=== PATIENT | male | born 1965 | race Caucasian/White ===

== ENCOUNTER 2020-02-09 10:23 | Outpatient (REF) | payer BC, SELFPAY ==
[2020-02-09 13:12] LABS: Basophils Percent Auto 0.3 % (0-2); Eosinophils Absolute Auto 0.2 X10*3/uL (0.0-0.4); Eosinophils Percent Auto 2.9 % (0-4); Hematocrit 42.6 % (42-52); Hemoglobin 14.2 g/dl (14.0-18.0); Imm Gran Abs Auto 0.08 X10*3/uL (0.00-0.03); Imm Gran Pct Auto 1.1 % (0.0-0.4); Lymphocytes Absolute Auto 1.5 X10*3/uL (1.2-4.9); Mean Corpuscular HGB Conc 33.3 g/dl (31.0-36.0); Mean Corpuscular Hemoglobin 30.4 pg (27.0-33.0); Mean Corpuscular Volume 91.2 fL (80-98); Mean Platelet Volume 13.5 fL (9.4-12.4); Monocytes Absolute Auto 0.4 X10*3/uL (0.1-1.2); Monocytes Percent Auto 5.8 % (2-11); Neutrophils Percent Auto 68.9 % (45-73); Platelet Count 205 X10*3/uL (160-400); Red Blood Count 4.67 X10*6/uL (4.60-5.80); Red Cell Distribution Width 12.8 % (11.0-16.0); White Blood Count 7.2 X10*3/uL (4.8-10.8)
[2020-02-09 13:40] LABS: Alanine Aminotransferase 30 U/L (0-40); Albumin Level 4.4 g/dL (3.5-5.0); Alkaline Phosphatase 77 U/L (39-117); Anion Gap 14 (12-20); Aspartate Amino Transferase 19 U/L (5-37); Bilirubin Total 0.4 mg/dL (0.0-1.0); Blood Urea Nitrogen 12 mg/dL (9-16); Carbon Dioxide 25 mmol/L (22-29); Chloride 103 mmol/L (96-108); Cholesterol 158 mg/dL; Estimated Glomerular Filt Rate > 60; Glucose Fasting 84 mg/dL (60-99); HDL Cholesterol 47 mg/dL; LDL Cholesterol Calculated 92 mg/dl; Potassium 3.8 mmol/l (3.3-5.1); Sodium 138 mmol/L (135-145); Total Protein 6.9 g/dL (6.5-8.0); Triglycerides 95 mg/dL
[2020-02-09 14:01] LABS: Prostate Specific Antigen Scr 0.63 ng/mL (<0.05-4.0); Thyroid Stimulating Hormone 1.19 uIU/mL (0.32-4.0)
[2020-02-09 14:20] LABS: Creatinine Urine 144.85 mg/dL; Microalbum/Creatinine Ratio Ur 5.5 ug/mg cr
== END 2020-02-09 10:24 | disposition home or self-care (01) ==
LOC: HO.10HDL 10:23
PROVIDERS: PCP Physician Assistant; Visit Provider Physician Assistant
DX: I10 Essential (primary) hypertension (principal); E78.5 Hyperlipidemia, unspecified; E66.01 Morbid (severe) obesity due to excess calories; Z12.5 Encounter for screening for malignant neoplasm of prostate
CPT/HCPCS: 36415; 80053; 80061; 82043; 84153; 84443; 85025

== ENCOUNTER 2020-09-03 11:51 | Outpatient (REF) | payer BC, SELFPAY ==
[2020-09-03 13:33] LABS: Hematocrit 42.5 % (42-52); Hemoglobin 14.4 g/dl (14.0-18.0); Mean Corpuscular HGB Conc 33.9 g/dl (31.0-36.0); Mean Corpuscular Hemoglobin 30.6 pg (27.0-33.0); Mean Corpuscular Volume 90.4 fL (80-98); Mean Platelet Volume 12.3 fL (9.4-12.4); Platelet Count 251 X10*3/uL (160-400); Red Cell Distribution Width 13.2 % (11.0-16.0); White Blood Count 8.5 X10*3/uL (4.8-10.8)
[2020-09-03 13:45] LABS: Alanine Aminotransferase 26 U/L (0-40); Albumin Level 4.5 g/dL (3.5-5.0); Alkaline Phosphatase 83 U/L (39-117); Anion Gap 13 (12-20); Aspartate Amino Transferase 19 U/L (5-37); Bilirubin Total 0.7 mg/dL (0.0-1.0); Blood Urea Nitrogen 14 mg/dL (9-16); Calcium 9.5 mg/dL (8.4-10.2); Carbon Dioxide 27 mmol/L (22-29); Chloride 102 mmol/L (96-108); Cholesterol 168 mg/dL; Estimated Glomerular Filt Rate > 60; Glucose Fasting 95 mg/dL (60-99); HDL Cholesterol 41 mg/dL; LDL Cholesterol Calculated 94 mg/dl; Potassium 3.7 mmol/L (3.3-5.1); Sodium 138 mmol/L (135-145); Total Protein 7.3 g/dL (6.5-8.0); Triglycerides 167 mg/dL
== END 2020-09-03 11:52 | disposition home or self-care (01) ==
LOC: HO.10HDL 11:51
PROVIDERS: Visit Provider Physician Assistant
DX: I10 Essential (primary) hypertension (principal)
CPT/HCPCS: 36415; 80053; 80061; 85027

== ENCOUNTER 2021-04-27 10:42 | Outpatient (REF) | payer BC, SELFPAY ==
[2021-04-27 11:22] LABS: Hematocrit 44.6 % (42.0-52.0); Hemoglobin 15.4 g/dl (14.0-18.0); Mean Corpuscular HGB Conc 34.5 g/dl (31.0-36.0); Mean Corpuscular Hemoglobin 30.9 pg (27.0-33.0); Mean Corpuscular Volume 89.4 fL (80.0-98.0); Platelet Count 259 X10*3/uL (160-400); Red Blood Count 4.99 X10*6/uL (4.60-5.80); Red Cell Distribution Width 13.2 % (11.0-16.0); White Blood Count 7.2 X10*3/uL (4.8-10.8)
[2021-04-27 11:32] LABS: Estimated Average Glucose 108 mg/dL; Hemoglobin A1c % 5.4 %
[2021-04-27 11:43] LABS: Alanine Aminotransferase 27 U/L (0-40); Albumin Level 4.5 g/dL (3.5-5.0); Alkaline Phosphatase 85 U/L (39-117); Anion Gap 16 (12-20); Aspartate Amino Transferase 19 U/L (5-37); Bilirubin Total 0.8 mg/dL (0.0-1.0); Blood Urea Nitrogen 12 mg/dL (9-16); Calcium 9.8 mg/dL (8.4-10.2); Carbon Dioxide 25 mmol/L (22-29); Chloride 102 mmol/L (96-108); Cholesterol 195 mg/dL; Estimated Glomerular Filt Rate > 60; Glucose Fasting 97 mg/dL (60-99); HDL Cholesterol 40 mg/dL; LDL Cholesterol Calculated 106 mg/dl; Potassium 4.1 mmol/L (3.3-5.1); Sodium 139 mmol/L (135-145); Total Protein 7.5 g/dL (6.5-8.0); Triglycerides 245 mg/dL
[2021-04-27 11:45] LABS: Microalbum/Creatinine Ratio Ur 5.6 ug/mg cr
== END 2021-04-27 10:43 | disposition home or self-care (01) ==
LOC: HO.HMGCLDS 10:42
PROVIDERS: PCP Physician Assistant; Visit Provider Physician Assistant
DX: Z12.5 Encounter for screening for malignant neoplasm of prostate (principal); I10 Essential (primary) hypertension; E78.5 Hyperlipidemia, unspecified; E66.01 Morbid (severe) obesity due to excess calories; Z68.39 Body mass index [BMI] 39.0-39.9, adult
CPT/HCPCS: 36415; 80053; 80061; 82043; 83036; 84153; 85027

== ENCOUNTER 2021-10-29 12:15 | Outpatient (REF) | payer BC, SELFPAY ==
[2021-10-29 13:44] LABS: Hematocrit 43.9 % (42.0-52.0); Hemoglobin 15.1 g/dl (14.0-18.0); Mean Corpuscular HGB Conc 34.4 g/dl (31.0-36.0); Mean Corpuscular Hemoglobin 30.4 pg (27.0-33.0); Mean Corpuscular Volume 88.5 fL (80.0-98.0); Platelet Count 250 X10*3/uL (160-400); Red Blood Count 4.96 X10*6/uL (4.60-5.80); Red Cell Distribution Width 13.1 % (11.0-16.0); White Blood Count 8.1 X10*3/uL (4.8-10.8)
[2021-10-29 14:29] LABS: B Type Natriuretic Peptide < 10 pg/mL (<100)
[2021-10-29 14:33] LABS: Alanine Aminotransferase 28 U/L (0-40); Albumin Level 4.7 g/dL (3.5-5.0); Alkaline Phosphatase 95 U/L (39-117); Anion Gap 18 (12-20); Aspartate Amino Transferase 21 U/L (5-37); Bilirubin Total 0.8 mg/dL (0.0-1.0); Blood Urea Nitrogen 16 mg/dL (9-16); Calcium 9.3 mg/dL (8.4-10.2); Carbon Dioxide 26 mmol/L (22-29); Chloride 98 mmol/L (96-108); Cholesterol 184 mg/dL; Estimated Glomerular Filt Rate > 60; Glucose Fasting 94 mg/dL (60-99); HDL Cholesterol 40 mg/dL; LDL Cholesterol Calculated 114 mg/dl; Potassium 3.9 mmol/L (3.3-5.1); Sodium 138 mmol/L (135-145); Total Protein 7.5 g/dL (6.5-8.0); Triglycerides 153 mg/dL
[2021-10-29 14:45] LABS: TSH reflex Free T4 1.37 uIU/mL (0.32-4.0)
== END 2021-10-29 12:16 | disposition home or self-care (01) ==
LOC: HO.10HDL 12:15
PROVIDERS: Visit Provider Physician Assistant
DX: R60.0 Localized edema (principal); I10 Essential (primary) hypertension
CPT/HCPCS: 36415; 80053; 80061; 83880; 84443; 85027

== ENCOUNTER 2022-06-03 10:56 | Outpatient (REF) | payer BC, SELFPAY ==
[2022-06-03 13:31] LABS: Hematocrit 43.7 % (42.0-52.0); Hemoglobin 14.6 g/dl (14.0-18.0); Mean Corpuscular HGB Conc 33.4 g/dl (31.0-36.0); Mean Corpuscular Volume 89.9 fL (80.0-98.0); Mean Platelet Volume 12.7 fL (9.4-12.4); Platelet Count 259 X10*3/uL (160-400); Red Blood Count 4.86 X10*6/uL (4.60-5.80); Red Cell Distribution Width 13.2 % (11.0-16.0); White Blood Count 7.2 X10*3/uL (4.8-10.8)
[2022-06-03 14:12] LABS: Alanine Aminotransferase 25 U/L (0-40); Albumin Level 4.5 g/dL (3.5-5.0); Alkaline Phosphatase 85 U/L (39-117); Anion Gap 14 (12-20); Aspartate Amino Transferase 20 U/L (5-37); Blood Urea Nitrogen 14 mg/dL (9-16); Calcium 9.6 mg/dL (8.4-10.2); Carbon Dioxide 27 mmol/L (22-29); Chloride 103 mmol/L (96-108); Cholesterol 183 mg/dL; Estimated Glomerular Filt Rate > 60; Glucose Fasting 89 mg/dL (60-99); HDL Cholesterol 39 mg/dL; LDL Cholesterol Calculated 104 mg/dl; Sodium 140 mmol/L (135-145); Total Protein 7.4 g/dL (6.5-8.0); Triglycerides 202 mg/dL
[2022-06-03 14:21] LABS: Creatinine Urine 193.76 mg/dL; Microalbum/Creatinine Ratio Ur 8.7 ug/mg cr
[2022-06-03 14:28] LABS: Prostate Specific Antigen Scr 0.59 ng/mL (<0.05-4.0); TSH reflex Free T4 1.35 uIU/mL (0.32-4.0)
== END 2022-06-03 10:57 | disposition home or self-care (01) ==
LOC: HO.10HDL 10:56
PROVIDERS: Visit Provider Physician Assistant
DX: Z12.5 Encounter for screening for malignant neoplasm of prostate (principal); I10 Essential (primary) hypertension; E78.5 Hyperlipidemia, unspecified
CPT/HCPCS: 36415; 80053; 80061; 82043; 84153; 84443; 85027

== ENCOUNTER 2022-12-03 09:33 | Outpatient (REF) | payer BC, SELFPAY ==
[2022-12-03 10:42] LABS: Hematocrit 44.1 % (42.0-52.0); Hemoglobin 14.7 g/dl (14.0-18.0); Mean Corpuscular HGB Conc 33.3 g/dl (31.0-36.0); Mean Corpuscular Hemoglobin 30.2 pg (27.0-33.0); Mean Corpuscular Volume 90.7 fL (80.0-98.0); Mean Platelet Volume 11.9 fL (9.4-12.4); Platelet Count 187 X10*3/uL (160-400); Red Blood Count 4.86 X10*6/uL (4.60-5.80); Red Cell Distribution Width 14.1 % (11.0-16.0); White Blood Count 8.4 X10*3/uL (4.8-10.8)
[2022-12-03 11:16] LABS: Alanine Aminotransferase 23 U/L (0-40); Albumin Level 4.2 g/dL (3.5-5.0); Alkaline Phosphatase 73 U/L (39-117); Anion Gap 14 (12-20); Aspartate Amino Transferase 18 U/L (5-37); Bilirubin Total 0.7 mg/dL (0.0-1.0); Blood Urea Nitrogen 14 mg/dL (9-16); Calcium 9.4 mg/dL (8.4-10.2); Carbon Dioxide 26 mmol/L (22-29); Chloride 103 mmol/L (96-108); Cholesterol 161 mg/dL (<200); Estimated Glomerular Filt Rate > 60; Glucose Fasting 99 mg/dL (60-99); HDL Cholesterol 44 mg/dL (>40); LDL Cholesterol Calculated 84 mg/dL (<100); Potassium 3.6 mmol/L (3.3-5.1); Sodium 139 mmol/L (135-145); Triglycerides 166 mg/dL (<150)
== END 2022-12-03 09:34 | disposition home or self-care (01) ==
LOC: HO.10HDL 09:33
PROVIDERS: Visit Provider Physician Assistant
DX: I10 Essential (primary) hypertension (principal); E78.5 Hyperlipidemia, unspecified
CPT/HCPCS: 36415; 80053; 80061; 85027

== ENCOUNTER 2022-12-04 15:37 | Outpatient (AMB) | payer BC, SELFPAY ==
--- NOTE | 2022-12-04 15:42 | MHC.PC.OV ---
Vital Signs 12/04/22 15:43 Height 5 ft 7 in Weight 252 lb 6 oz BMI 39.5 BP 140/70 H Blood Pressure Location Lt brachial Position Sitting Pulse 98 Pulse Source Pulse Oximeter Pulse Oximetry (%) 98 Oxygen Delivery Method Room Air Intake Visit Reasons: f/u HTN Intake Note: Patient is here to follow up on HTN. Manager Personnel Selection Required: No Malt Specifications Control Assistant: Not Required per policy Accompanied by: Self / Same As Patient Allergies No Known Allergies Allergy (Verified 12/04/22 15:50) Medication List - Last Reconciled 12/04/22 by Homero Crisostomo PA-C albuterol sulfate 90 mcg/actuation 1 inh inhalation QID PRN 30 days amlodipine 10 mg PO DAILY 90 days atorvastatin 10 mg PO DAILY lisinopril-hydrochlorothiazide 20-25 mg 1 tab PO DAILY 90 days metoprolol succinate ER 25 mg PO DAILY Tobacco use date assessed: 12/04/22 Dental Screening Dental Screen Date: 12/04/22 Did you have a dental visit in the last 12 months?: Yes Did you have a dental problem in the last 6 months where you did not have access to dental care?: No Was dental information given to patient?: Patient has dentist HPI f/u HTN HPI Details Dated is a 57 y/o M here today for a follow-up visit ? Pmhax significant for HTN, HLD, obesity. ? .. ? HTN: Blood pressure today in office acceptable., no headaches, CP, SOB. He reports blood pressures at home are much better, reports 120s to 140 systolic. Of note written note in elevated heart rate and was started metoprolol which has normalized his heart rate. Also does trace pedal edema likely secondary to his amlodipine. Will consider alternative blood pressure medication ? .. ? HLD: Patient's lipid panel much improved. Triglycerides still slightly elevated. .. Obesity:? Patient does understand he needs to reduce his weight in order to reduce his blood pressure and cholesterol.? He plans on losing 20 lb the next 6 months with diet and exercise Laboratory Tests 06/03/22 06/03/22 06/03/22 10:59 10:59 10:59 RBC Triglycerides 202 Cholesterol 183 LDL Cholesterol, C alc 104 12/03/22 12/03/22 12/03/22 09:40 Unknown Unknown RBC 4.86 Triglycerides 166 H Cholesterol 161 LDL Cholesterol, C alc 12/03/22 Unknown RBC Triglycerides Cholesterol LDL Cholesterol, C alc 84 PFSH Surgical History No pertinent past surgical history Family History Father Acute CVA (cerebrovascular accident) Myocardial infarction Mother S/P AVR Social History Housing: House Alcohol intake: current Alcohol intake frequency: a few times a week Alcohol type: beer and hard liquor Patient Tobacco Use Status: Former Tobacco user Tobacco use type: Cigar e-Cigarette/Vaping Use: Never Used Second Hand Smoke Exposure: No service: No Current occupational status: employed Cognitive needs: No Hearing needs: No Vision needs: Yes (glasses) Questionnaire Thrive Questionnaire Date Thrive assessed: 06/04/22 SOFY-7 AMB Questionnaire SOFY-7 Date SOFY - 7 assessed: 06/04/22 Source: Developed by Drs. Juventino Jenkins, Becki Perez, Wilberto Miranda and colleagues, with an educational samra from [employer]. Review of Systems Const Denies headache(s) Eyes Denies loss of vision ENT Denies vertigo, Denies dizziness, Denies headache(s) and Denies sore throat Card Denies chest pain, Denies leg edema and Denies lightheadedness Resp Denies cough, Denies hemoptysis and Denies wheezing GI Denies abdominal pain, Denies melena, Denies constipation, Denies diarrhea and Denies vomiting Denies dysuria, Denies urinary frequency and Denies urinary urgency Musc Denies arthralgias, Denies joint swelling, Denies numbness and Denies tingling Neuro Denies Abnormal speech present, Denies behavioral changes, Denies vertigo, Denies dizziness, Denies headache(s), Denies loss of vision, Denies memory loss, Denies numbness and Denies tingling Psych Denies anxiety, Denies behavioral changes, Denies depression, Denies memory loss and Denies panic attacks Adrián/Lymph Denies easy bleeding and Denies easy bruising Aller/Immun Denies wheezing Physical exam (Primary Care) Vital Signs: Last Vital Signs Pulse 98 12/04/22 15:43 BP 140/70 H 12/04/22 15:43 Pulse Ox 98 12/04/22 15:43 Oxygen Delivery Method Room Air 12/04/22 15:43 BMI result Body Mass Index 39.5 BMI Assessment/Plan discussion: High Tobacco/Smoking Status: Tobacco use Status Tobacco use date assessed 12/04/22 12/04/22 15:47 Patient Tobacco Use Status Former Tobacco user 12/04/22 15:47 Tobacco use type Cigar 12/04/22 15:47 e-Cigarette/Vaping Use Never Used 12/04/22 15:47 Thrive Assessment: Date of Thrive Assessment Date Thrive assessed 06/04/22 12/04/22 15:47 Const Other: Obese General: healthy appearing, no acute distress, alert and awake Nutritional Appearance: well nourished Orientation/consciousness: oriented to person, oriented to place and oriented to time HENMT Ears: TM's normal bilaterally General nose exam: Normal nasal mucous membranes and turbinates present Eyes Conjunctivae: conjunctivae normal Sclerae: sclerae normal Pupils: Equal, round and reactive pupils present Neck Neck: Yes no lymphadenopathy and Yes no JVD Thyroid: Thyroid normal Carotids: no bruits Resp Effort & Inspection: normal respiratory effort and not tachypneic Auscultation: no crackles, no rales, no rhonchi and no wheezes Cardio Rate: regular rate Rhythm: regular rhythm Heart sounds: no murmurs and normal S1 and S2 GI Palpation (GI): Soft to palpation, nontender, no hepatomegaly and no splenomegaly Auscultation: normal bowel sounds Skin General skin exam: dry skin Full body images: 1. SMALL RAISED HYPERPIGMENTED/ TEXTURED LESION THE LEFT FOREARM. Neuro General: oriented to person, oriented to place and oriented to time Cranial nerves: Yes Equal, round and reactive pupils present Speech: No Abnormal speech present Gait exam (Neuro): Normal gait present Motor exam (neuro): no tremor noted Extrem Right upper extremity: full ROM Left upper extremity: full ROM Right lower extremity: full ROM; no edema Left lower extremity: full ROM; no edema Psych Mental Status: mental status grossly normal Speech and movement: Normal speech and movement present Affect: normal affect Attitude: cooperative Thought process: Normal thought process present Assessment and Plan Assessment & Plan (1) HTN (hypertension): Code(s): I10 - Essential (primary) hypertension Qualifiers: Hypertension type: essential hypertension Qualified Code(s): I10 - Essential (primary) hypertension Plan: Patient's blood pressure acceptable today in office. Will continue him on his current dose of antihypertensive medications. Advised to monitor blood pressure more at home. Goal blood pressure to be below 140/90 note does have pedal edema likely secondary to his calcium channel jb. Will consider alternative medication at next visit. (2) Obese: Code(s): E66.9 - Obesity, unspecified Qualifiers: Body mass index: BMI 39.0-39.9 Obesity classification: adult class 2 (BMI 35 - 39.9) Obesity type: due to excess calories Serious obesity comorbidity presence: with serious comorbidity Qualified Code(s): E66.01 - Morbid (severe) obesity due to excess calories; Z68.39 - Body mass index [BMI] 39.0-39.9, adult Plan: Patient does understand his BMI is over 30 will work on being more physically active and adapting to better eating habits to reduce his weight (3) Borderline hyperlipidemia: Code(s): E78.5 - Hyperlipidemia, unspecified Plan: Patient continues to have a borderline high triglycerides. He uses fish oil which works well for him to bring his triglycerides down. He will continue working on lifestyle modifications to reduce high cholesterol foods in his diet. (4) Actinic keratosis: Code(s): L57.0 - Actinic keratosis Plan: Would like dermatology evaluation. Orders: Orders Microalbumin, Random (w Creat) 12/04/22 I10 - Essential (primary) hypertension Comprehensive [place]. Panel Fast 12/04/22 I10 - Essential (primary) hypertension Lipid Panel 12/04/22 E78.5 - Hyperlipidemia, unspecified Prostate Specific Antigen Scr 12/04/22 E78.5 - Hyperlipidemia, unspecified, Z12.5 - Encounter for screening for malignant neoplasm of prostate Referrals Dermatology Referral L57.0 - Actinic keratosis Medications: Refilled metoprolol succinate ER 25 mg PO DAILY 90 tabs 1RF I10 - Essential (primary) hypertension lisinopril-hydrochlorothiazide 20-25 mg 1 tab PO DAILY 90 days 90 tabs 2RF I10 - Essential (primary) hypertension Coding Level of Care Code Est Pt Level 4 (81460) Diagnoses Essential hypertension I10 Hypertension type: essential hypertension Class 2 severe obesity due to excess calories with serious comorbidity and body mass index (BMI) of 39.0 to 39.9 in adult E66.01; Z68.39 Body mass index: BMI 39.0-39.9 Obesity classification: adult class 2 (BMI 35 - 39.9) Obesity type: due to excess calories Serious obesity comorbidity presence: with serious comorbidity Borderline hyperlipidemia E78.5 Actinic keratosis L57.0
[2022-12-04 15:43] VITALS: BP 140/70; PULSE 98; O2SAT 98; BMI 39.5
== END 2022-12-04 16:14 | disposition home or self-care (01) ==
PROVIDERS: Visit Provider Physician Assistant
DX: I10 Essential (primary) hypertension (principal); E66.01 Morbid (severe) obesity due to excess calories; Z68.39 Body mass index [BMI] 39.0-39.9, adult; E78.5 Hyperlipidemia, unspecified; L57.0 Actinic keratosis
CPT/HCPCS: 99214

== ENCOUNTER 2023-06-03 11:10 | Outpatient (REF) | payer BC, SELFPAY ==
[2023-06-03 14:22] LABS: Alanine Aminotransferase 30 U/L (0-40); Albumin Level 4.4 g/dL (3.5-5.0); Alkaline Phosphatase 73 U/L (39-117); Anion Gap 13 (12-20); Aspartate Amino Transferase 24 U/L (5-37); Bilirubin Total 0.6 mg/dL (0.0-1.0); Blood Urea Nitrogen 12 mg/dL (9-16); Calcium 9.5 mg/dL (8.4-10.2); Carbon Dioxide 27 mmol/L (22-29); Chloride 103 mmol/L (96-108); Cholesterol 189 mg/dL (<200); Estimated Glomerular Filt Rate > 60; Glucose Fasting 99 mg/dL (60-99); HDL Cholesterol 41 mg/dL (>40); LDL Cholesterol Calculated 108 mg/dL (<100); Potassium 3.6 mmol/L (3.3-5.1); Sodium 139 mmol/L (135-145); Total Protein 7.5 g/dL (6.5-8.0); Triglycerides 203 mg/dL (<150)
[2023-06-03 14:24] LABS: Prostate Specific Antigen Scr 0.59 ng/mL (<0.05-4.0)
== END 2023-06-03 11:11 | disposition home or self-care (01) ==
LOC: HO.10HDL 11:10
PROVIDERS: Visit Provider Physician Assistant
DX: E78.5 Hyperlipidemia, unspecified (principal); I10 Essential (primary) hypertension; Z12.5 Encounter for screening for malignant neoplasm of prostate
CPT/HCPCS: 36415; 80053; 80061; 84153

== ENCOUNTER 2023-06-04 08:24 | Outpatient (REF) | payer BC, SELFPAY ==
[2023-06-04 11:42] LABS: Creatinine Urine 163.08 mg/dL; Microalbum/Creatinine Ratio Ur 6.7 ug/mg cr (<30)
== END 2023-06-04 08:25 | disposition home or self-care (01) ==
LOC: HO.LNP 08:24
PROVIDERS: Visit Provider Physician Assistant
DX: I10 Essential (primary) hypertension (principal)
CPT/HCPCS: 82043; 82570

== ENCOUNTER 2023-06-04 14:19 | Outpatient (AMB) | payer BC, SELFPAY ==
[2023-06-04 14:42] VITALS: BP 148/92; PULSE 96; O2SAT 97; BMI 40.6
--- NOTE | 2023-06-04 14:42 | A.OFFPC_ITS ---
Vital Signs 06/04/23 14:42 Height 5 ft 7 in Weight 259 lb BMI 40.6 BP 148/92 H Blood Pressure Location Lt brachial Position Sitting Pulse 96 Pulse Source Pulse Oximeter Pulse Oximetry (%) 97 Oxygen Delivery Method Room Air Intake Visit Reasons: PE Intake Note: Patient is here today for a physical. Tobacco Shaker Required: No Accompanied by: Self / Same As Patient Allergies No Known Allergies Allergy (Verified 06/04/23 14:56) Medication List - Last Reconciled 06/04/23 by Homero Crisostomo PA-C albuterol sulfate 90 mcg/actuation 1 inh inhalation QID PRN 30 days amlodipine 10 mg PO DAILY 90 days atorvastatin 10 mg PO DAILY lisinopril-hydrochlorothiazide 20-25 mg 1 tab PO DAILY 90 days metoprolol succinate ER 25 mg PO DAILY Tobacco use date assessed: 06/04/23 Dental Screening Dental Screen Date: 06/04/23 Did you have a dental visit in the last 12 months?: Yes Did you have a dental problem in the last 6 months where you did not have access to dental care?: No Was dental information given to patient?: Patient has dentist HPI PE HPI Details Dated is a 58 y/o M here today for routine annual physical ? Pmhax significant for HTN, HLD, obesity. ? .. ? HTN: Blood pressure today in office acceptable., no headaches, CP, SOB. He reports blood pressures at home are much better, reports 120s to 140 systolic. Of note written note in elevated heart rate and was started metoprolol which has normalized his heart rate. Of note he does have quite significant edema his lower extremities which I suspect is related to his calcium channel jb. We did discuss changing this medication though patient would like to hold off for now. ? .. ? HLD: Patient's lipid panel much improved. Triglycerides still elevated. He does admit to dietary indiscretion and has stopped using [place] 3 fish oil pills. .. Obesity:? Patient does understand he needs to reduce his weight in order to reduce his blood pressure and cholesterol.? He plans on losing 20 lb the next 6 months with diet and exercise] .. Vaccines: Up-to-date with COVID vaccine, tetanus vaccine, considering shingles vaccine Colonoscopy done at age 51 - no polyps found-? repeat 10 years. Laboratory Tests 06/03/22 12/03/22 06/03/23 11:05 Unknown 11:17 Triglycerides 166 H 203 H LDL Cholesterol, C alc 84 108 H Urine Microalbumin 17.0 06/04/23 Unknown Triglycerides LDL Cholesterol, C alc Urine Microalbumin 11.0 PFSH Surgical History No pertinent past surgical history Family History Father Acute CVA (cerebrovascular accident) Myocardial infarction Mother S/P AVR Social History (Updated 06/04/23 @ 14:59 by Homero rCisostomo PA-C) Housing: House Alcohol intake: current Alcohol intake frequency: a few times a week Alcohol type: beer and hard liquor Patient Tobacco Use Status: Former Tobacco user Tobacco use type: Cigar e-Cigarette/Vaping Use: Never Used Second Hand Smoke Exposure: No service: No Current occupational status: employed Cognitive needs: No Hearing needs: No Vision needs: Yes (glasses) Questionnaire PHQ-9 Over the last 2 weeks, how often have you been bothered by any of the following problems? 1. Little interest or pleasure in doing things: not at all 2. Feeling down, depressed, or hopeless: not at all 3. Trouble falling or staying asleep, or sleeping too much: not at all 4. Feeling tired or having little energy: not at all 5. Poor appetite or overeating: not at all 6. Feeling bad about yourself - or that you are a failure or have let yourself or your family down: not at all 7. Trouble concentrating on things, such as reading the newspaper or watching television: not at all 8. Moving or speaking so slowly that other people could have noticed. Or the opposite - being so fidgety or restless that you have been moving around a lot more than usual: not at all 9. Thoughts that you would be better off or of hurting yourself in some way: not at all Total score: 0 Depression Screening Interpretation: Negative Depression Screening Done: Yes 29363 - PHQ-9 Billing: Yes Source: Developed by Drs. Juventino Jenkins, Becki Perez, Wilberto Miranda and colleagues, with an educational samra from [employer]. Thrive Questionnaire Date Thrive assessed: 06/04/23 I am a: Patient What is your living situation today?: I have a steady place to live Within the past 12 months, did the food you bought not last and you didn't have the money to get more?: Never true Within the past 12 months, did you worry whether your food would run out before you got money to buy more?: Never true Do you have trouble paying for medicines?: No Do you have trouble getting transportation to medical appointments?: No Do you have trouble paying your heating and electricity bill?: No Do you have trouble taking care of your child, family member or friend?: No Do you have trouble with day-to-day activities such as bathing, preparing meals, shopping, managing finances, etc.?: No Are you currently unemployed and looking for a job?: No Are you interested in more education?: No Please select the resources that you would like help with: None Currently or been in a relationship where the following occur: no concerns reported THRIVE Score: 0 AUDIT C Alcohol Use Questionnaire (AUDIT-C) 1. How often do you have a drink containing alcohol?: 2-4 times a month 2. How many drinks containing alcohol do you have on a typical day when you are drinking?: 3 or 4 3. How often do you have six or more drinks on one occasion?: Monthly Total Score: 5 SOFY-7 AMB Questionnaire SOFY-7 Date SOFY - 7 assessed: 06/04/23 Feeling nervous, anxious, or on edge: 0 = Not at all Not being able to stop or control worryin = Not at all Worrying too much about different things: 0 = Not at all Trouble relaxin = Not at all Being so restless that it is hard to sit still: 0 = Not at all Becoming easily annoyed or irritable: 0 = Not at all Feeling afraid as if something awful might happen: 0 = Not at all Total SOFY-7 score (0-4 normal; 5-9 mild; 10-14 moderate; 15-21 severe): 0 Source: Developed by Drs. Juventino Jenkins, Becki Perez, Wilberto Miranda and colleagues, with an educational samra from [employer]. SOFY-7 Assessment Billing SOFY-7 Assessment Tool: SOFY-7 Assessment 55546 Review of Systems Const Denies body aches, Denies chills, Denies excessive sweating, Denies fatigue, Denies fever(s) and Denies headache(s) Eyes Denies blurry vision ENT Denies dysphagia, Denies vertigo, Denies dizziness, Denies headache(s), Denies hearing loss and Denies tinnitus Card Denies chest pain, Denies chest pain with activity, Denies syncope, Denies irregular heart rhythm and Denies dyspnea Resp Denies chest congestion, Denies cough, Denies hemoptysis, Denies dyspnea and Denies wheezing GI Denies abdominal pain, Denies melena, Denies hematochezia, Denies coffee ground emesis, Denies dysphagia, Denies diarrhea, Denies nausea and Denies vomiting Denies difficulty urinating, Denies dysuria, Denies urinary frequency, Denies urinary hesitancy and Denies urinary urgency Musc Denies arthralgias, Denies limited range of motion, Denies muscle cramps and Denies muscle weakness Skin/Breast Denies rash and Denies skin ulcer Neuro Denies Abnormal speech present, Denies confusion, Denies vertigo, Denies dizziness, Denies syncope, Denies headache(s), Denies memory loss and Denies seizure-like activity Psych Denies anxiety, Denies confusion, Denies depression, Denies memory loss, Denies panic attacks and Denies paranoia Endo Denies excessive sweating, Denies fatigue, Denies flushing, Denies polydipsia and Denies polyuria Aller/Immun Denies wheezing Physical exam (Primary Care) Vital Signs: Last Vital Signs Pulse 96 06/04/23 14:42 BP 148/92 H 06/04/23 14:42 Pulse Ox 97 06/04/23 14:42 Oxygen Delivery Method Room Air 06/04/23 14:42 BMI result Body Mass Index 40.6 Tobacco/Smoking Status: Tobacco use Status Tobacco use date assessed 06/04/23 06/04/23 14:43 Patient Tobacco Use Status Former Tobacco user 06/04/23 14:59 Tobacco use type Cigar 06/04/23 14:59 e-Cigarette/Vaping Use Never Used 06/04/23 14:59 PHQ-9: PHQ-9 Score PHQ-9: Total score 0 06/04/23 15:00 Depression Screening Interpretation: Negative Thrive Assessment: Date of Thrive Assessment Date Thrive assessed 06/04/23 06/04/23 14:47 Currently or been in a relationship where the following occur: no concerns r eported Const General: cooperative, comfortable, no acute distress, alert and awake; No confusion Orientation/consciousness: oriented to person, oriented to place, patient oriented x3 and No confusion HENMT Head: Yes normocephalic Ears: external ears normal and TM's normal bilaterally Face and sinus: No sinus tenderness Mouth: Normal oral and palatal mucosa present and tongue normal Teeth and gingiva: dentition normal and gingiva normal Throat: Yes posterior oropharynx normal, Yes tonsils normal and Yes uvula midline Eyes Conjunctivae: conjunctivae normal Sclerae: sclerae normal Pupils: Equal, round and reactive pupils present EOM: EOMs intact bilaterally Direct Ophthalmoscopy: No no photophobia Neck Neck: Yes no lymphadenopathy, No tender and Yes no JVD Thyroid: Thyroid normal Carotids: no bruits Chest Chest palpation & inspection: no tenderness Resp Effort & Inspection: normal respiratory effort, no audible wheezes, not labored and no stridor Auscultation: no crackles, no rales, no rhonchi and no wheezes Cardio Jugular venous distension: no JVD Rate: regular rate, not bradycardic and not tachycardic Rhythm: regular rhythm Bruits: no carotid bruits Peripheral pulses: Peripheral pulses 2+ throughout GI Inspection: Yes normal to inspection, No abdominal wall ecchymosis and No visible herniation Palpation (GI): Soft to palpation, nontender, no guarding, not rigid and No hepatosplenomegaly present Auscultation: normoactive bowel sounds General: Yes no CVA tenderness Back/Spine/Pelvis Back: no CVA tenderness and No back tenderness Cervical Spine: cervical ROM normal Thoracic/Lumbar Spine: thoracic and lumbar spine normal to inspection, straight leg raise negative bilaterally, No thoraco-lumbar ROM limited and No lumbar spinal tenderness Skin Lesions: no lesions Rashes: no rashes Wounds: no wounds Neuro General: oriented to person, oriented to place, patient oriented x3, CN's II-XI intact bilaterally and No confusion Cranial nerves: Yes Equal, round and reactive pupils present and Yes Normal accommodation reflex present Cognition (Neuro): normal cognition Speech: No Abnormal speech present Gait exam (Neuro): Normal gait present Motor exam (neuro): 5/5 motor strength present throughout Extrem Right upper extremity: full ROM; no cyanosis Left upper extremity: full ROM; no cyanosis Right lower extremity: no edema Left lower extremity: no edema Psych Appearance: grossly normal Mental Status: mental status grossly normal Affect: normal affect Attitude: cooperative Thought process: Normal thought process present Assessment and Plan Assessment & Plan (1) Annual physical exam: Code(s): Z00.00 - Encounter for general adult medical examination without abnormal findings (2) HTN (hypertension): Code(s): I10 - Essential (primary) hypertension Qualifiers: Hypertension type: essential hypertension Qualified Code(s): I10 - Essential (primary) hypertension Plan: Patient's blood pressure acceptable today in office. Will continue him on his current dose of antihypertensive medications. Advised to monitor blood pressure more at home. Goal blood pressure to be below 140/90 note does have pedal edema likely secondary to his calcium channel jb. Will consider alternative medication at next visit. (3) Obese: Code(s): E66.9 - Obesity, unspecified Qualifiers: Obesity type: due to excess calories Obesity classification: adult class 2 (BMI 35 - 39.9) Serious obesity comorbidity presence: with serious comorbidity Body mass index: BMI 39.0-39.9 Qualified Code(s): E66.01 - Morbid (severe) obesity due to excess calories; Z68.39 - Body mass index [BMI] 39.0- 39.9, adult Plan: Patient does understand his BMI is over 30 will work on being more physically active and adapting to better eating habits to reduce his weight (4) Borderline hyperlipidemia: Code(s): E78.5 - Hyperlipidemia, unspecified Plan: Patient continues to have a borderline high triglycerides. He uses fish oil which works well for him to bring his triglycerides down. He will continue working on lifestyle modifications to reduce high cholesterol foods in his diet. Orders: Orders Comprehensive [place]. Panel Fast 6 Months I10 - Essential (primary) hypertension Complete Blood Count no Diff 6 Months I10 - Essential (primary) hypertension Lipid Panel 6 Months E78.5 - Hyperlipidemia, unspecified Patient Instructions: Goals: Reduce weight by 20 lb, goal blood pressure remain below 140/90 Barriers: Staying adherent to healthy eating habits and physical activity Coding Level of Care Code Est Pt Prev Care 40-64y(77215) Diagnoses Annual physical exam Z00.00 Essential hypertension I10 Hypertension type: essential hypertension Class 2 severe obesity due to excess calories with serious comorbidity and body mass index (BMI) of 39.0 to 39.9 in adult E66.01; Z68.39 Obesity type: due to excess calories Obesity classification: adult class 2 (BMI 35 - 39.9) Serious obesity comorbidity presence: with serious comorbidity Body mass index: BMI 39.0-39.9 Borderline hyperlipidemia E78.5 Additional Codes SOFY-7 Assessment Billing - SOFY-7 Assessment Tool: SOFY-7 Assessment 43777 ([id number])
== END 2023-06-04 15:19 | disposition home or self-care (01) ==
PROVIDERS: PCP Physician Assistant; Visit Provider Physician Assistant
DX: Z00.00 Encounter for general adult medical examination without abnormal findings (principal); I10 Essential (primary) hypertension; E66.01 Morbid (severe) obesity due to excess calories; Z68.39 Body mass index [BMI] 39.0-39.9, adult; E78.5 Hyperlipidemia, unspecified
CPT/HCPCS: 99396

== ENCOUNTER 2023-12-08 12:47 | Outpatient (REF) | payer BC, SELFPAY ==
[2023-12-08 13:42] LABS: Hematocrit 43.7 % (42.0-52.0); Hemoglobin 14.6 g/dl (14.0-18.0); Mean Corpuscular HGB Conc 33.4 g/dl (31.0-36.0); Mean Corpuscular Volume 89.7 fL (80.0-98.0); Mean Platelet Volume 11.4 fL (9.4-12.4); Platelet Count 234 X10*3/uL (160-400); Red Blood Count 4.87 X10*6/uL (4.60-5.80); Red Cell Distribution Width 13.4 % (11.0-16.0); White Blood Count 7.7 X10*3/uL (4.8-10.8)
[2023-12-08 14:19] LABS: Alanine Aminotransferase 32 U/L (0-40); Albumin Level 4.5 g/dL (3.5-5.0); Alkaline Phosphatase 83 U/L (39-117); Anion Gap 15 (12-20); Aspartate Amino Transferase 35 U/L (5-37); Bilirubin Total 0.7 mg/dL (0.0-1.0); Blood Urea Nitrogen 15 mg/dL (9-16); Calcium 9.6 mg/dL (8.4-10.2); Carbon Dioxide 27 mmol/L (22-29); Chloride 104 mmol/L (96-108); Cholesterol 180 mg/dL (<200); Estimated Glomerular Filt Rate > 60; Glucose Fasting 104 mg/dL (60-99); HDL Cholesterol 41 mg/dL (>40); LDL Cholesterol Calculated 102 mg/dL (<100); Potassium 3.2 mmol/L (3.3-5.1); Sodium 143 mmol/L (135-145); Total Protein 7.7 g/dL (6.5-8.0); Triglycerides 186 mg/dL (<150)
== END 2023-12-08 12:48 | disposition home or self-care (01) ==
LOC: HO.10HDL 12:47
PROVIDERS: Visit Provider Physician Assistant
DX: I10 Essential (primary) hypertension (principal); E78.5 Hyperlipidemia, unspecified
CPT/HCPCS: 36415; 80053; 80061; 85027

== ENCOUNTER 2023-12-09 15:24 | Outpatient (AMB) | payer BC, SELFPAY ==
--- NOTE | 2023-12-09 15:30 | MHC.OFFVIS ---
Vital Signs 12/09/23 15:45 Height 5 ft 7 in Weight 254 lb BMI 39.8 BP 124/84 Blood Pressure Location Lt brachial Position Sitting Intake Visit Reasons: 6 Month F/U Tobacco Hanger Required: No Accompanied by: Self / Same As Patient Allergies amlodipine Adverse Reaction (Intermediate, Verified 12/09/23 15:37) pedal edema Medication List - Last Reconciled 12/09/23 by Homero Crisostomo PA-C albuterol sulfate 90 mcg/actuation 1 inh inhalation QID PRN 30 days amlodipine 10 mg PO DAILY 90 days atorvastatin 10 mg PO DAILY lisinopril-hydrochlorothiazide 20-25 mg 1 tab PO DAILY 90 days metoprolol succinate ER 25 mg PO DAILY HPI HPI 6 Month F/U: Details: Keanu is a 58 y/o M here today for follow-up visit ? Pmhax significant for HTN, HLD, obesity. ? .. ? HTN: Blood pressure today in office acceptable., no headaches, CP, SOB. He reports blood pressures at home are much better, reports 120s to 140 systolic. Of note written note in elevated heart rate and was started metoprolol which has normalized his heart rate. Of note he does have quite significant edema his lower extremities which I suspect is related to his calcium channel jb. He is now willing to transition off of amlodipine and increase his dose of lisinopril for his blood pressure control. ? .. ? HLD: Patient's lipid panel much improved. Triglycerides still slightly elevated. He does admit to dietary indiscretion and has stopped using [place] 3 fish oil pills. .. Obesity:? Patient does understand he needs to reduce his weight in order to reduce his blood pressure and cholesterol.? He plans on losing 20 lb the next 6 months with diet and exercise] [facility] Surgical History No pertinent past surgical history Family History Father Acute CVA (cerebrovascular accident) Myocardial infarction Mother S/P AVR Social History Housing: House Alcohol intake: current Alcohol intake frequency: a few times a week Alcohol type: beer and hard liquor Patient Tobacco Use Status: Former Tobacco user Tobacco use type: Cigar e-Cigarette/Vaping Use: Never Used Second Hand Smoke Exposure: No service: No Current occupational status: employed Cognitive needs: No Hearing needs: No Vision needs: Yes (glasses) Review of Systems Const Denies headache(s) Eyes Denies loss of vision ENT Denies vertigo, Denies dizziness, Denies headache(s) and Denies sore throat Card Denies chest pain, Denies leg edema and Denies lightheadedness Resp Denies cough, Denies hemoptysis and Denies wheezing GI Denies abdominal pain, Denies melena, Denies constipation, Denies diarrhea and Denies vomiting Denies dysuria, Denies urinary frequency and Denies urinary urgency Musc Denies arthralgias, Denies joint swelling, Denies numbness and Denies tingling Neuro Denies Abnormal speech present, Denies behavioral changes, Denies vertigo, Denies dizziness, Denies headache(s), Denies loss of vision, Denies memory loss, Denies numbness and Denies tingling Psych Denies anxiety, Denies behavioral changes, Denies depression, Denies memory loss and Denies panic attacks Adrián/Lymph Denies easy bleeding and Denies easy bruising Aller/Immun Denies wheezing Physical Exam Vital Signs: Last Vital Signs BP 124/84 12/09/23 15:45 BMI result Body Mass Index 39.8 Const General: healthy appearing, no acute distress, alert and awake Nutritional Appearance: well nourished Orientation/consciousness: oriented to person, oriented to place and oriented to time HEENT Ears: TM's normal bilaterally General nose exam: Normal nasal mucous membranes and turbinates present Eyes Conjunctivae: conjunctivae normal Sclerae: sclerae normal Pupils: Equal, round and reactive pupils present Neck Neck: Yes no lymphadenopathy and Yes no JVD Thyroid: Thyroid normal Carotids: no bruits Resp Effort & Inspection: normal respiratory effort and not tachypneic Auscultation: no crackles, no rales, no rhonchi and no wheezes Cardio Rate: regular rate Rhythm: regular rhythm Heart sounds: no murmurs and normal S1 and S2 GI Palpation (GI): Soft to palpation, nontender, no hepatomegaly and no splenomegaly Auscultation: normal bowel sounds Skin General skin exam: no rashes or lesions noted and dry skin Neuro General: oriented to person, oriented to place and oriented to time Cranial nerves: Yes Equal, round and reactive pupils present Speech: No Abnormal speech present Gait exam (Neuro): Normal gait present Motor exam (neuro): no tremor noted Extrem Right upper extremity: full ROM Left upper extremity: full ROM Right lower extremity: full ROM; no edema Left lower extremity: full ROM; no edema Psych Mental Status: mental status grossly normal Speech and movement: Normal speech and movement present Affect: normal affect Attitude: cooperative Thought process: Normal thought process present Office Procedures Flu Questionnaire Does the patient have a severe egg allergy?: No Immunizations Fluarix Triv [id number] (PF) 45 mcg (15 mcg x 3)/0.5 mL IM syringe Performing Provider: Homero Crisostomo PA-C Performing Location[facility] [place] [facility] Documented (not given) by: ZEYNEP Mitchell on 12/09/23 15:50 Reason Not Given: Patient Refused Quality Reporting (2019) Depression/Bipolar (159/160/161/177) PHQ-9: Total score: 0 Assessment & Plan Assessment & Plan (1) HTN (hypertension): Code(s): I10 - Essential (primary) hypertension Category: Medical Qualifiers: Hypertension type: essential hypertension Qualified Code(s): I10 - Essential (primary) hypertension Plan: Patient's blood pressure acceptable today in office. Will continue hydrochlorothiazide and metoprolol. Will discontinue amlodipine due to pedal edema. Will increase his lisinopril to 30 mg. Advised to continue monitoring blood pressure at home with goal blood pressure to be below 140/90 (2) Borderline hyperlipidemia: Code(s): E78.5 - Hyperlipidemia, unspecified Category: Medical Plan: Patient's most recent lipid panel showing good control of his total cholesterol and LDL. His triglycerides still remains slightly elevated. He has been taking [place] threes which seemed to help his cholesterol. Goal LDL to remain below 130 (3) Class 2 obesity: Code(s): E66.812 - Obesity, class 2 Category: Medical Plan: Patient does understand his BMI is over 35 and will work on better eating habits and being more physically active to reduce his weight. Orders: Orders Prostate Specific Antigen Scr 12/09/23 I10 - Essential (primary) hypertension, Z12.5 - Encounter for screening for malignant neoplasm of prostate Complete Blood Count no Diff 12/09/23 I10 - Essential (primary) hypertension Lipid Panel 12/09/23 E78.5 - Hyperlipidemia, unspecified Influenza [id number] Immunization 12/09/23 Z23 - Encounter for immunization Microalbumin, Random (w Creat) 12/09/23 I10 - Essential (primary) hypertension Comprehensive [place]. Panel Fast 12/09/23 I10 - Essential (primary) hypertension Referrals Dermatology Referral L57.0 - Actinic keratosis Medications: New lisinopril 30 mg PO DAILY 90 days 90 tabs 2RF I10 - Essential (primary) hypertension, L57.0 - Actinic keratosis hydrochlorothiazide 25 mg PO DAILY 90 days 90 tabs 1RF I10 - Essential (primary) hypertension Refilled atorvastatin 10 mg PO DAILY 90 tabs 2RF E78.5 - Hyperlipidemia, unspecified Discontinued lisinopril-hydrochlorothiazide 20-25 mg Discontinued Reason: None 1 tab PO DAILY 90 days 90 tabs 2RF I10 - Essential (primary) hypertension amlodipine Discontinued Reason: Doctor's Order 10 mg PO DAILY 90 days 90 tabs 2RF I10 - Essential (primary) hypertension Patient Instructions: Goal: Blood pressure to remain below 140/90, LDL to remain below 130 Barriers: Adherence to physical activity and healthy eating habits Coding Level of Care Code Est Pt Level 4 (23062) Diagnoses Essential hypertension I10 Hypertension type: essential hypertension Borderline hyperlipidemia E78.5 Class 2 obesity E66.812 Additional Codes SOFY-7 Assessment Billing - SOFY-7 Assessment Tool: SOFY-7 Assessment 54990 ([id number]) Thrive Questionnaire Date Thrive assessed: 12/09/23 I am a: Patient What is your living situation today?: I have a steady place to live Within the past 12 months, did the food you bought not last and you didn't have the money to get more?: Never true Within the past 12 months, did you worry whether your food would run out before you got money to buy more?: Never true Do you have trouble paying for medicines?: No Do you have trouble getting transportation to medical appointments?: No Do you have trouble paying your heating and electricity bill?: No Do you have trouble taking care of your child, family member or friend?: No Do you have trouble with day-to-day activities such as bathing, preparing meals, shopping, managing finances, etc.?: No Are you currently unemployed and looking for a job?: No Are you interested in more education?: No Please select the resources that you would like help with: None THRIVE Score: 0 SOFY-7 AMB Questionnaire SOFY-7 Date SOFY - 7 assessed: 12/09/23 Feeling nervous, anxious, or on edge: 0 = Not at all Not being able to stop or control worryin = Not at all Worrying too much about different things: 0 = Not at all Trouble relaxin = Not at all Being so restless that it is hard to sit still: 0 = Not at all Becoming easily annoyed or irritable: 0 = Not at all Feeling afraid as if something awful might happen: 0 = Not at all Total SOFY-7 score (0-4 normal; 5-9 mild; 10-14 moderate; 15-21 severe): 0 Source: Developed by Drs. Juventino Jenkins, Becki Perez, Wilberto Miranda and colleagues, with an educational samra from [employer]. SOFY-7 Assessment Billing SOFY-7 Assessment Tool: SOFY-7 Assessment 22817 PHQ-9 Over the last 2 weeks, how often have you been bothered by any of the following problems? 1. Little interest or pleasure in doing things: not at all 2. Feeling down, depressed, or hopeless: not at all 3. Trouble falling or staying asleep, or sleeping too much: not at all 4. Feeling tired or having little energy: not at all 5. Poor appetite or overeating: not at all 6. Feeling bad about yourself - or that you are a failure or have let yourself or your family down: not at all 7. Trouble concentrating on things, such as reading the newspaper or watching television: not at all 8. Moving or speaking so slowly that other people could have noticed. Or the opposite - being so fidgety or restless that you have been moving around a lot more than usual: not at all 9. Thoughts that you would be better off or of hurting yourself in some way: not at all Total score: 0 Depression Screening Interpretation: Negative Depression Screening Done: Yes 76644 - PHQ-9 Billing: Yes Source: Developed by Drs. Juventino Jenkins, Becki Perez, Wilberto Miranda and colleagues, with an educational samra from [employer]
[2023-12-09 15:45] VITALS: BP 124/84; BMI 39.8
== END 2023-12-09 15:50 | disposition home or self-care (01) ==
LOC: HO.HMCH 15:25
PROVIDERS: PCP Physician Assistant; Visit Provider Physician Assistant
DX: I10 Essential (primary) hypertension (principal); E78.5 Hyperlipidemia, unspecified; E66.812 Obesity, class 2; Z68.39 Body mass index [BMI] 39.0-39.9, adult

== ENCOUNTER → 2023-12-09 15:24 | Outpatient (BNVA) | payer BC, SELFPAY | PROVIDERS: PCP Physician Assistant; Visit Provider Physician Assistant | DX: I10 Essential (primary) hypertension (principal); E78.5 Hyperlipidemia, unspecified; E66.812 Obesity, class 2; Z68.39 Body mass index [BMI] 39.0-39.9, adult | CPT/HCPCS: 90471; 96127 ==

== ENCOUNTER 2024-04-13 13:13 | Outpatient (AMB) | payer BC, SELFPAY ==
--- NOTE | 2024-04-13 13:22 | AM.OFFWIN_ITS ---
Intake Vital Signs 04/13/24 13:23 Height 5 ft 7 in Weight 254 lb BMI 39.8 BP 170/100 H Blood Pressure Location Lt brachial Position Sitting Pulse 97 Pulse Source Pulse Oximeter Temp 98.3 F Temp Source Oral Pulse Oximetry (%) 98 Oxygen Delivery Method Room Air Intake Visit Reasons: EP High BP 160/100(approx), bp med concern Patient Tobacco Use Status: Former Tobacco user Allergies amlodipine Adverse Reaction (Intermediate, Verified 04/13/24 13:23) pedal edema Medication List - Last Reconciled 04/13/24 by Evan Chowdhury MD albuterol sulfate 90 mcg/actuation 1 inh inhalation QID PRN 30 days atorvastatin 10 mg PO DAILY hydrochlorothiazide 25 mg PO DAILY 90 days lisinopril 30 mg PO DAILY 90 days metoprolol succinate ER 25 mg PO DAILY Do you need a note to return to daycare/school/sports/work: No HPI EP High BP 160/100(approx), bp med concern HPI Details History - The patient is a 59-year-old male pres enting with management issues related to Essential Hypertension. - patients Amlodipine was stopped due to development of ankle edema. - currently taking lisinopril 30 mg, met oprolol 25 mg and hydrochlorothiazide 25 mg - Sporadic blood pressure monitoring charla wed readings fluctuating around 140/100 mm Hg when relaxed. And 160 systolic when active, had headaches couple times so checked his blood pressure in between patient stopped checking it - Recent worsening of blood pressure led to a reassessment of medication. - Transition to Losartan 50 mg discussed , with potential dose adjustment based on response. - I would recommend to take how of lisin opril 30 mg when he gets home today From tomorrow morning losartan 50 mg check blood pressure in the afternoon if still above 140 and another 50 mg at night And make the dose losartan 50 mg b.i.d. Continue monitoring blood pressure at home and sent readings through patient portal to PCP Problem List - uncontrolled Essential Hypertension - Lifestyle-related health concerns Review of Systems - General: No fever no chills - Neurological: No headaches no dizziness - Ear nose throat: No sore throat no hearing difficulty no ear pain - Cardiovascular: No syncope, no chest pain, no palpitations - Gastrointestinal: No nausea vomiting or diarrhea Physical Exam General: No acute distress HEENT: No acute findings Neck: Supple Respiratory system: Able to talk in full sentences, no audible wheeze cardiovascular: S1-S2 regular in rate and rhythm Gastrointestinal: No pain Extremities: No swelling [employer] OPERATOR: Alert awake oriented x3 motor sensory intact Skin: Normal turgor PFSH Surgical History No pertinent past surgical history Family History Father Acute CVA (cerebrovascular accident) Myocardial infarction Mother S/P AVR Social History Housing: House Alcohol intake: current Alcohol intake frequency: a few times a week Alcohol type: beer and hard liquor Patient Tobacco Use Status: Former Tobacco user Tobacco use type: Cigar e-Cigarette/Vaping Use: Never Used Second Hand Smoke Exposure: No service: No Current occupational status: employed Cognitive needs: No Hearing needs: No Vision needs: Yes (glasses) Physical Exam Vital Signs: Last Vital Signs Temp 98.3 F 04/13/24 13:23 Pulse 97 04/13/24 13:23 BP 170/100 H 04/13/24 13:23 Pulse Ox 98 04/13/24 13:23 Oxygen Delivery Method Room Air 04/13/24 13:23 BMI result Body Mass Index 39.8 Assessment & Plan Assessment & Plan (1) Uncontrolled hypertension: Code(s): I10 - Essential (primary) hypertension Plan History - The patient is a 59-year-old male presenting with management issues related to Essential Hypertension. - patients Amlodipine was stopped due to development of ankle edema. - currently taking lisinopril 30 mg, metoprolol 25 mg and hydrochlorothiazide 25 mg - Sporadic blood pressure monitoring showed readings fluctuating around 140/100 mm Hg when relaxed. And 160 systolic when active, had headaches couple times so checked his blood pressure in between patient stopped checking it - Recent worsening of blood pressure led to a reassessment of medication. - Transition to Losartan 50 mg discussed, with potential dose adjustment based on response. - I would recommend to take how of lisinopril 30 mg when he gets home today From tomorrow morning losartan 50 mg check blood pressure in the afternoon if still above 140 and another 50 mg at night And make the dose losartan 50 mg b.i.d. Continue monitoring blood pressure at home and sent readings through patient portal to PCP Problem List - uncontrolled Essential Hypertension - Lifestyle-related health concerns Medications: New losartan 50 mg PO BID 60 tabs 0RF Discontinued lisinopril Discontinued Reason: Doctor's Order 30 mg PO DAILY 90 days 90 tabs 2RF I10 - Essential (primary) hypertension, L57.0 - Actinic keratosis Coding Level of Care Code Est Pt Level 3 (84664) Diagnoses Uncontrolled hypertension I10
[2024-04-13 13:23] VITALS: BP 170/100; PULSE 97; TEMP 36.8; O2SAT 98; BMI 39.8
== END 2024-04-13 13:44 | disposition home or self-care (01) ==
PROVIDERS: PCP Physician Assistant; Visit Provider Internal Medicine
DX: I10 Essential (primary) hypertension (principal)

== ENCOUNTER → 2024-04-13 13:13 | Outpatient (BNVA) | payer BC, SELFPAY | PROVIDERS: PCP Physician Assistant; Visit Provider Internal Medicine ==

== ENCOUNTER 2024-04-30 13:32 | Outpatient (AMB) | payer BC, SELFPAY ==
--- NOTE | 2024-04-30 13:34 | MHC.OFFWIV ---
Intake Vital Signs 04/30/24 13:35 Height 5 ft 7 in Weight 257 lb BMI 40.2 BP 152/102 H Blood Pressure Location Lt brachial Position Sitting Respiration 16 Pulse 98 Pulse Source Pulse Oximeter Temp 97.7 F Temp Source Oral Pulse Oximetry (%) 98 Oxygen Delivery Method Room Air Intake Visit Reasons: EP headache,high BP Intake Note: Pt is here today c/o elevated blood pressure Patient Tobacco Use Status: Former Tobacco user Allergies amlodipine Adverse Reaction (Intermediate, Verified 04/30/24 13:36) pedal edema HPI EP headache,high BP HPI Details Patient presents with elevated blood pressure. He says that he has had several changes to his blood pressure regimen. He notes that it was controlled well with amlodipine but this was discontinued due to lower extremity swelling. Currently taking losartan, metoprolol and hydrochlorothiazide as prescribed. He denies any current headaches, chest pain, shortness of breath, dizziness or changes in mentation. No changes in urination. Feels well today. He notes that he has had some intermittent headaches which are generally posterior in nature and related to neck tension. [facility] Surgical History No pertinent past surgical history Family History Father Acute CVA (cerebrovascular accident) Myocardial infarction Mother S/P AVR Social History Housing: House Alcohol intake: current Alcohol intake frequency: a few times a week Alcohol type: beer and hard liquor Patient Tobacco Use Status: Former Tobacco user Tobacco use type: Cigar e-Cigarette/Vaping Use: Never Used Second Hand Smoke Exposure: No service: No Current occupational status: employed Cognitive needs: No Hearing needs: No Vision needs: Yes (glasses) Review of Systems Const Denies chills, Denies fatigue, Denies fever(s), Denies headache(s) and Denies weakness ENT Denies dizziness and Denies headache(s) Card Denies chest pain, Denies lightheadedness, Denies dyspnea and Denies other (Palpitations) Resp Denies cough, Denies dyspnea, Denies wheezing and Denies other ( shortness of breath) Musc Denies numbness and Denies tingling Neuro Denies dizziness, Denies headache(s), Denies numbness, Denies tingling, Denies paresthesias and Denies weakness Psych Denies anxiety and Denies depression Endo Denies fatigue Aller/Immun Denies wheezing Physical Exam Vital Signs: Last Vital Signs Temp 97.7 F 04/30/24 13:35 Pulse 98 04/30/24 13:35 Resp 16 04/30/24 13:35 BP 152/102 H 04/30/24 13:35 Pulse Ox 98 04/30/24 13:35 Oxygen Delivery Method Room Air 04/30/24 13:35 BMI result Body Mass Index 40.2 Const General: no acute distress and well developed Nutritional Appearance: well nourished Orientation/consciousness: patient oriented x3 HEENT Head: Yes normocephalic and Yes atraumatic Eyes General: appearance normal, both eyes and all related structures Pupils: Equal, round and reactive pupils present EOM: EOMs intact bilaterally Resp Effort & Inspection: normal respiratory effort Auscultation: clear to auscultation bilaterally Cardio Rate: regular rate Rhythm: regular rhythm Heart sounds: S1 normal heart sound present, S2 normal heart sound present, no gallops, no murmurs and no rubs Neuro General: patient oriented x3 and gait normal Cranial nerves: Yes Equal, round and reactive pupils present Psych Affect: normal affect Assessment & Plan Assessment & Plan (1) HTN (hypertension): Code(s): I10 - Essential (primary) hypertension Qualifiers: Hypertension type: essential hypertension Qualified Code(s): I10 - Essential (primary) hypertension Plan: Blood pressure is too high. No evidence of end-organ damage however. increase hydrochlorothiazide from 25 mg daily to 50 mg daily continue losartan and metoprolol as prescribed avoid salt/sodium. encouraged weight loss follow-up with your PCP Medications: Changed From hydrochlorothiazide 25 mg PO DAILY 90 days 90 tabs 1RF I10 - Essential (primary) hypertension To hydrochlorothiazide 50 mg (2 x 25 mg) PO DAILY 90 days 180 tabs 1RF I10 - Essential (primary) hypertension Coding Level of Care Code Est Pt Level 3 (25698) Diagnoses Essential hypertension I10 Hypertension type: essential hypertension
[2024-04-30 13:35] VITALS: BP 152/102; PULSE 98; RESP 16; TEMP 36.5; O2SAT 98; BMI 40.2
== END 2024-04-30 14:16 | disposition home or self-care (01) ==
PROVIDERS: PCP Physician Assistant; Visit Provider Family Medicine
DX: I10 Essential (primary) hypertension (principal)

== ENCOUNTER 2024-06-08 11:49 | Outpatient (REF) | payer BC, SELFPAY ==
[2024-06-08 13:18] LABS: Hematocrit 40.5 % (42.0-52.0); Hemoglobin 14.2 g/dl (14.0-18.0); Mean Corpuscular HGB Conc 35.1 g/dl (31.0-36.0); Mean Corpuscular Volume 85.6 fL (80.0-98.0); Mean Platelet Volume 11.2 fL (9.4-12.4); Platelet Count 194 X10*3/uL (160-400); Red Blood Count 4.73 X10*6/uL (4.60-5.80); Red Cell Distribution Width 13.6 % (11.0-16.0); White Blood Count 7.3 X10*3/uL (4.8-10.8)
[2024-06-08 13:31] LABS: Alanine Aminotransferase 30 U/L (0-40); Albumin Level 4.2 g/dL (3.5-5.0); Alkaline Phosphatase 85 U/L (39-117); Anion Gap 14 (12-20); Aspartate Amino Transferase 27 U/L (5-37); Bilirubin Total 0.8 mg/dL (0.0-1.0); Blood Urea Nitrogen 15 mg/dL (9-16); Calcium 9.2 mg/dL (8.4-10.2); Carbon Dioxide 27 mmol/L (22-29); Chloride 101 mmol/L (96-108); Cholesterol 154 mg/dL (<200); Estimated Glomerular Filt Rate > 60; Glucose Fasting 108 mg/dL (60-99); HDL Cholesterol 36 mg/dL (>40); LDL Cholesterol Calculated 54 mg/dL (<100); Potassium 3.5 mmol/L (3.3-5.1); Sodium 138 mmol/L (135-145); Total Protein 7.1 g/dL (6.5-8.0); Triglycerides 321 mg/dL (<150)
[2024-06-08 13:42] LABS: Creatinine Urine 109.99 mg/dL; Microalbum/Creatinine Ratio Ur 10.9 ug/mg cr (<30)
[2024-06-08 13:53] LABS: Prostate Specific Antigen Scr 0.65 ng/mL (<0.05-4.0)
== END 2024-06-08 11:50 | disposition home or self-care (01) ==
LOC: HO.10HDL 11:49
PROVIDERS: Visit Provider Physician Assistant
DX: I10 Essential (primary) hypertension (principal); E78.5 Hyperlipidemia, unspecified; Z12.5 Encounter for screening for malignant neoplasm of prostate
CPT/HCPCS: 36415; 80053; 80061; 82043; 82570; 84153; 85027

== ENCOUNTER 2024-08-17 15:23 | Outpatient (AMB) | payer BC, SELFPAY ==
[2024-08-17 15:32] VITALS: BP 140/94; PULSE 99; TEMP 36.3; O2SAT 97; BMI 39.7
--- NOTE | 2024-08-17 15:32 | A.OFFPC_ITS ---
Vital Signs 08/17/24 15:32 Height 5 ft 7 in Weight 253 lb 4 oz BMI 39.7 BP 140/94 H Blood Pressure Location Lt brachial Position Sitting Pulse 99 Pulse Source Pulse Oximeter Temp 97.3 F Temp Source Temporal Artery Scan Pulse Oximetry (%) 97 Oxygen Delivery Method Room Air Intake Visit Reasons: annual exam Product Safety Lead Required: No Accompanied by: Self / Same As Patient Allergies amlodipine Adverse Reaction (Intermediate, Verified 08/17/24 15:39) pedal edema Medication List - Last Reconciled 08/17/24 by Homero Crisostomo PA-C albuterol sulfate 90 mcg/actuation 1 inh inhalation QID PRN 30 days atorvastatin 10 mg PO DAILY hydrochlorothiazide 50 mg (2 x 25 mg) PO DAILY 90 days losartan 50 mg PO BID 30 days metoprolol succinate ER 25 mg PO DAILY Tobacco use date assessed: 08/17/24 Dental Screening Dental Screen Date: 08/17/24 Did you have a dental visit in the last 12 months?: Yes Did you have a dental problem in the last 6 months where you did not have access to dental care?: No Was dental information given to patient?: Patient has dentist HPI annual exam HPI Details Keanu is a 59-year-old male here today for routine annual physical ? Pmhax significant for HTN, HLD, obesity. ? .. ? HTN: Blood pressure today in office slightly elevated. Has made adjustments in his blood pressure medication recently increased his losartan and hydrochlorothiazide a recent urgent care visit. Amlodipine caused swelling in lower extremities.., otherwise patient has CP, SOB, he does condone minor headaches in the back of his head. He reports blood pressures at home are much better, reports 120s to 140 systolic. PLAN: Will work on lifestyle and dietary modifications. Considerations were made to increase his metoprolol to 50 mg extended release ? .. ? HLD: Patient's lipid panel much improved. Triglycerides still slightly elevated. He does admit to dietary indiscretion and has stopped using Half Way 3 fish oil pills. .. Class 2 Obesity:? Patient does understand he needs to reduce his weight in order to reduce his blood pressure and cholesterol.? He plans on losing 20 lb the next 6 months with diet and exercise] Vaccines: Up-to-date with COVID vaccine, tetanus vaccine, considering shingles vaccine Colonoscopy done at age 51 - no polyps found-? repeat 10 years. [facility] Surgical History No pertinent past surgical history Family History Father Acute CVA (cerebrovascular accident) Myocardial infarction Mother S/P AVR Social History (Updated 08/17/24 @ 15:45 by Homero Crisostomo PA-C) Housing: House Alcohol intake: current Alcohol intake frequency: a few times a week Alcohol type: beer and hard liquor Patient Tobacco Use Status: Former Tobacco user Tobacco use type: Cigar e-Cigarette/Vaping Use: Never Used Second Hand Smoke Exposure: No service: No Current occupational status: employed Cognitive needs: No Hearing needs: No Vision needs: Yes (glasses) Questionnaire PHQ-9 Over the last 2 weeks, how often have you been bothered by any of the following problems? 1. Little interest or pleasure in doing things: not at all 2. Feeling down, depressed, or hopeless: not at all 3. Trouble falling or staying asleep, or sleeping too much: not at all 4. Feeling tired or having little energy: not at all 5. Poor appetite or overeating: not at all 6. Feeling bad about yourself - or that you are a failure or have let yourself or your family down: not at all 7. Trouble concentrating on things, such as reading the newspaper or watching television: not at all 8. Moving or speaking so slowly that other people could have noticed. Or the opposite - being so fidgety or restless that you have been moving around a lot more than usual: not at all 9. Thoughts that you would be better off or of hurting yourself in some way: not at all Total score: 0 Depression Screening Interpretation: Negative Depression Screening Done: Yes 17646 - PHQ-9 Billing: Yes Source: Developed by Drs. Juventino Jenkins, Becki Perez, Wilberto Miranda and colleagues, with an educational samra from [employer]. Thrive Questionnaire Date Thrive assessed: 08/17/24 I am a: Patient What is your living situation today?: I have a steady place to live Within the past 12 months, did the food you bought not last and you didn't have the money to get more?: Never true Within the past 12 months, did you worry whether your food would run out before you got money to buy more?: Never true Do you have trouble paying for medicines?: No Do you have trouble getting transportation to medical appointments?: No Do you have trouble paying your heating and electricity bill?: No Do you have trouble taking care of your child, family member or friend?: No Do you have trouble with day-to-day activities such as bathing, preparing meals, shopping, managing finances, etc.?: No Are you currently unemployed and looking for a job?: No Are you interested in more education?: No Please select the resources that you would like help with: None Currently or been in a relationship where the following occur: No concerns reported THRIVE Score: 0 AUDIT C Alcohol Use Questionnaire (AUDIT-C) 1. How often do you have a drink containing alcohol?: 2-3 times a week 2. How many drinks containing alcohol do you have on a typical day when you are drinking?: 3 or 4 3. How often do you have six or more drinks on one occasion?: Monthly Total Score: 6 SOFY-7 AMB Questionnaire SOFY-7 Date SOFY - 7 assessed: 08/17/24 Feeling nervous, anxious, or on edge: 0 = Not at all Not being able to stop or control worryin = Not at all Worrying too much about different things: 1 = Several days Trouble relaxin = Not at all Being so restless that it is hard to sit still: 0 = Not at all Becoming easily annoyed or irritable: 0 = Not at all Feeling afraid as if something awful might happen: 0 = Not at all Total SOFY-7 score (0-4 normal; 5-9 mild; 10-14 moderate; 15-21 severe): 1 Source: Developed by Drs. Juventino Jenkins, Becki Perez, Wilberto Miranda and colleagues, with an educational samra from [employer]. SOFY-7 Assessment Billing SOFY-7 Assessment Tool: SOFY-7 Assessment 73878 Review of Systems Const Denies body aches, Denies chills, Denies excessive sweating, Denies fatigue, Denies fever(s) and Denies headache(s) Eyes Denies blurry vision ENT Denies dysphagia, Denies vertigo, Denies dizziness, Denies headache(s), Denies hearing loss and Denies tinnitus Card Denies chest pain, Denies chest pain with activity, Denies syncope, Denies irregular heart rhythm and Denies dyspnea Resp Denies chest congestion, Denies cough, Denies hemoptysis, Denies dyspnea and Denies wheezing GI Denies abdominal pain, Denies melena, Denies hematochezia, Denies coffee ground emesis, Denies dysphagia, Denies diarrhea, Denies nausea and Denies vomiting Denies difficulty urinating, Denies dysuria, Denies urinary frequency, Denies ur inary hesitancy and Denies urinary urgency Musc Denies arthralgias, Denies limited range of motion, Denies muscle cramps and Denies muscle weakness Skin/Breast Denies rash and Denies skin ulcer Neuro Denies Abnormal speech present, Denies confusion, Denies vertigo, Denies dizziness, Denies syncope, Denies headache(s), Denies memory loss and Denies seizure-like activity Psych Denies anxiety, Denies confusion, Denies depression, Denies memory loss, Denies panic attacks and Denies paranoia Endo Denies excessive sweating, Denies fatigue, Denies flushing, Denies polydipsia and Denies polyuria Aller/Immun Denies wheezing Physical exam (Primary Care) Vital Signs: Last Vital Signs Temp 97.3 F 08/17/24 15:32 Pulse 99 08/17/24 15:32 BP 140/94 H 08/17/24 15:32 Pulse Ox 97 08/17/24 15:32 Oxygen Delivery Method Room Air 08/17/24 15:32 BMI result Body Mass Index 39.7 BMI Assessment/Plan discussion: High BMI High, discussed plan: lifestyle, weight reduction, dietary and physical activity Tobacco/Smoking Status: Tobacco use Status Tobacco use date assessed 08/17/24 08/17/24 15:38 Patient Tobacco Use Status Former Tobacco user 08/17/24 15:45 Tobacco use type Cigar 08/17/24 15:45 e-Cigarette/Vaping Use Never Used 08/17/24 15:45 PHQ-9: PHQ-9 Score PHQ-9: Total score 0 08/17/24 15:45 Depression Screening Interpretation: Negative Thrive Assessment: Date of Thrive Assessment Date Thrive assessed 08/17/24 08/17/24 15:38 Currently or been in a relationship where the following occur: No concerns reported Const General: cooperative, comfortable, no acute distress, alert and awake; No confusion Orientation/consciousness: oriented to person, oriented to place, patient or iented x3 and No confusion HENMT Head: Yes normocephalic Ears: external ears normal and TM's normal bilaterally Face and sinus: No sinus tenderness Mouth: Normal oral and palatal mucosa present and tongue normal Teeth and gingiva: dentition normal and gingiva normal Throat: Yes posterior oropharynx normal, Yes tonsils normal and Yes uvula midline Eyes Conjunctivae: conjunctivae normal Sclerae: sclerae normal Pupils: Equal, round and reactive pupils present EOM: EOMs intact bilaterally Direct Ophthalmoscopy: No no photophobia Neck Neck: Yes no lymphadenopathy, No tender and Yes no JVD Thyroid: Thyroid normal Carotids: no bruits Chest Chest palpation & inspection: no tenderness Resp Effort & Inspection: normal respiratory effort, no audible wheezes, not labored and no stridor Auscultation: no crackles, no rales, no rhonchi and no wheezes Cardio Jugular venous distension: no JVD Rate: regular rate, not bradycardic and not tachycardic Rhythm: regular rhythm Bruits: no carotid bruits Peripheral pulses: Peripheral pulses 2+ throughout GI Inspection: Yes normal to inspection, No abdominal wall ecchymosis and No visible herniation Palpation (GI): Soft to palpation, nontender, no guarding, not rigid and No hepatosplenomegaly present Auscultation: normoactive bowel sounds General: Yes no CVA tenderness Back/Spine/Pelvis Back: no CVA tenderness and No back tenderness Cervical Spine: cervical ROM normal Thoracic/Lumbar Spine: thoracic and lumbar spine normal to inspection, straight leg raise negative bilaterally, No thoraco-lumbar ROM limited and No lumbar spinal tenderness Skin Lesions: no lesions Rashes: no rashes Wounds: no wounds Neuro General: oriented to person, oriented to place, patient oriented x3, CN's II-XI intact bilaterally and No confusion Cranial nerves: Yes Equal, round and reactive pupils present and Yes Normal accommodation reflex present Cognition (Neuro): normal cognition Speech: No Abnormal speech present Gait exam (Neuro): Normal gait present Motor exam (neuro): 5/5 motor strength present throughout Extrem Right upper extremity: full ROM; no cyanosis Left upper extremity: full ROM; no cyanosis Right lower extremity: no edema Left lower extremity: no edema Psych Appearance: grossly normal Mental Status: mental status grossly normal Affect: normal affect Attitude: cooperative Thought process: Normal thought process present Coding Level of Care Code Est Pt Prev Care 40-64y([id number]) Diagnoses Annual physical exam Z00.00 Impaired glucose metabolism R73.09 Essential hypertension I10 Hypertension type: essential hypertension Borderline hyperlipidemia E78.5 Class 2 obesity E66.812 Pain of toe of right foot M79.674 Laterality: right Additional Codes SOFY-7 Assessment Billing - SOFY-7 Assessment Tool: SOFY-7 Assessment 56696 ([id number]) PHQ-9 - 57329 - PHQ-9 Billing: Yes ([id number]) Assessment & Plan Assessment & Plan (1) Annual physical exam: Code(s): Z00.00 - Encounter for general adult medical examination without abnormal findings Category: Medical Plan: As per HPI (2) Impaired glucose metabolism: Code(s): R73.09 - Other abnormal glucose Category: Medical Plan: Noted elevated fasting blood sugar at 108. Patient will work on lifestyle and dietary modifications and will consider antihyperglycemic in the future. (3) HTN (hypertension): Code(s): I10 - Essential (primary) hypertension Category: Medical Qualifiers: Hypertension type: essential hypertension Qualified Code(s): I10 - Essential (primary) hypertension Plan: Patient's blood pressure elevated today in office. We have made adjustments in his blood pressure medication now on highest dose of losartan and hydrochlorothiazide. Amlodipine has been discontinued due to lower extremity swelling. He will work on lifestyle and dietary modifications Considerations have been made to increase his metoprolol dose to 50 mg for better blood pressure control. Advised to continue monitoring blood pressure at home with goal blood pressure to be below 140/90 (4) Borderline hyperlipidemia: Code(s): E78.5 - Hyperlipidemia, unspecified Category: Medical Plan: Patient's most recent lipid panel showing good control of his total cholesterol and LDL. His triglycerides still remains slightly elevated. He has been taking Half Way threes which seemed to help his cholesterol. Goal LDL to remain below 130 (5) Class 2 obesity: Code(s): E66.812 - Obesity, class 2 Category: Medical Plan: Patient does understand his BMI is over 35 and will work on better eating habits and being more physically active to reduce his weight. (6) Toe pain: Code(s): M79.676 - Pain in unspecified toe(s) Category: Medical Qualifiers: Laterality: right Qualified Code(s): M79.674 - Pain in right toe(s) Plan: Patient had 1 episode of 48 hours of toe pain that will come up from sleep. This was in the setting of increasing his hydrochlorothiazide and being a bit dehydrated. Will check his uric acid levels for possible gout presentation. Orders: Orders Comprehensive [place]. Panel Fast 08/17/24 I10 - Essential (primary) hypertension Complete Blood Count no Diff 08/17/24 I10 - Essential (primary) hypertension Uric Acid 08/17/24 M79.676 - Pain in unspecified toe(s) Prostate Specific Antigen Scr 08/17/24 I10 - Essential (primary) hypertension, Z12.5 - Encounter for screening for malignant neoplasm of prostate Lipid Panel 08/17/24 E78.5 - Hyperlipidemia, unspecified
== END 2024-08-17 16:10 | disposition home or self-care (01) ==
LOC: HO.HMCH 15:23
PROVIDERS: PCP Physician Assistant; Visit Provider Physician Assistant
DX: Z00.00 Encounter for general adult medical examination without abnormal findings (principal); I10 Essential (primary) hypertension; E66.812 Obesity, class 2; Z68.39 Body mass index [BMI] 39.0-39.9, adult; R73.09 Other abnormal glucose; E78.5 Hyperlipidemia, unspecified; M79.674 Pain in right toe(s)

== ENCOUNTER → 2024-08-17 15:23 | Outpatient (BNVA) | payer BC, SELFPAY | PROVIDERS: PCP Physician Assistant; Visit Provider Physician Assistant | DX: Z00.00 Encounter for general adult medical examination without abnormal findings (principal); I10 Essential (primary) hypertension; E78.5 Hyperlipidemia, unspecified; E66.812 Obesity, class 2; R73.09 Other abnormal glucose; M79.674 Pain in right toe(s); Z68.39 Body mass index [BMI] 39.0-39.9, adult | CPT/HCPCS: 96127 ==